=== PATIENT | female | born 1990 | race Two or more races ===

== ENCOUNTER 2022-06-25 11:58 | Emergency (ER) | payer OTHER, SELFPAY ==
[2022-06-25 11:59] VITALS: BP 132/78; PULSE 72; RESP 18; TEMP 36.4; O2SAT 100
[2022-06-25 14:21] LABS: Basophils Absolute Auto 0.1 K/mm3 (0.0-0.1); Basophils Percent Auto 0.7 % (0.2-1.2); Eosinophils Absolute Auto 0.2 K/mm3 (0-0.3); Eosinophils Percent Auto 2.1 % (0-4.4); Hematocrit 39.5 % (37.0-47.0); Hemoglobin 13.4 g/dL (12.0-15.0); Immature Granulocyte Absolute 0.05 K/mm3 (0.00-0.031); Immature Granulocyte Percent A 0.5 % (0-0.5); Lymphocytes Absolute Auto 2.52 K/mm3 (0.9-3.2); Lymphocytes Percent Auto 23.6 % (18.3-44.2); Mean Corpuscular HGB Conc 33.9 g/dl (32-36); Mean Corpuscular Hemoglobin 32.1 pg (26-34); Mean Corpuscular Volume 94.7 fl (80-100); Mean Platelet Volume 8.7 fl (7.4-10.4); Monocytes Absolute Auto 0.6 K/mm3 (0.1-0.6); Monocytes Percent Auto 5.9 % (2.6-8.5); Neutrophils Absolute Auto 7.2 K/mm3 (1.3-6.7); Neutrophils Percent Auto 67.2 % (45.5-73.1); Platelet Count Result 352 k/mm3 (150-375); Red Blood Count 4.17 M/mm3 (4.2-5.4); Red Cell Distribution Width 13.3 % (11.5-14.5); White Blood Count 10.7 K/mm3 (4.5-10.0)
--- NOTE | 2022-06-25 15:54 | ED.FEMALEGU ---
HPI - Female Genitourinary General Chief complaint: Vaginal Bleeding Stated complaint: Vaginal Bleeding Time Seen by Provider: 06/25/22 15:34 Source: patient and RN notes reviewed Mode of arrival: ambulatory Limitations: no limitations History of Present Illness HPI Narrative: This is a 32 year old female with history of irregular menses who presents for evaluation of heavy vaginal bleeding. She reports having menstrual cycle at the end of May, but she did not have period for 3 months prior to that. She started her cycle again 5 days ago and she reports heavy vaginal bleeding for 3 days. She states she was passing large clots. She initially was using tampons but she changed to overnight pads today. She has had to change pads twice today. She thinks her bleeding has decreased since being in ER. She had some intermittent lower abdominal cramping. She denies dizziness. She looked on google and read if you pass large clots you should be evaluated. Review of Systems Constitutional: Constitutional: Denies weakness Cardiovascular: Cardiovascular: Denies syncope, Denies rapid heart rate, Denies irregular heart rhythm, Denies leg edema and Denies dyspnea Respiratory: Respiratory: Denies chest congestion, Denies hemoptysis, Denies excessive phlegm production and Denies dyspnea Gastrointestinal: Gastrointestinal: Denies abdominal pain, Denies hematochezia, Denies diarrhea and Denies vomiting Genitourinary: Genitourinary: Reports abnormal vaginal bleeding, Denies hematuria and Denies dysuria Musculoskeletal: Musculoskeletal: Denies joint swelling, Denies loss of height and Denies muscle weakness Neurologic: Denies syncope, Denies focal weakness and Denies weakness PMFSH Past Medical History Medical History (Updated 06/25/22 @ 16:03 by Vy Ovalles MD) Patient denies medical problems Surgical History Surgical History (Updated 06/25/22 @ 15:58 by Vy Ovalles MD) No pertinent past surgical history Social History Social History (Updated 06/25/22 @ 15:58 by Vy Ovalles MD) Smoking status: Never smoker Exam Const: General: no acute distress and alert Nutritional Appearance: well nourished Orientation/consciousness: patient oriented x3 Limitations: no limitations HENMT: Head: normal to inspection Eyes: EOM: EOMs intact bilaterally Resp: Effort & Inspection: normal respiratory effort Auscultation: clear to auscultation bilaterally Cardio: Rate: regular rate Rhythm: regular rhythm GI: GI Palp: Yes Soft to palpation, No Tenderness to palpation present (GI), No Guarding due to palpation present (GI) and No Rigid due to palpation Auscultation: normal bowel sounds : Speculum Exam - Vagina: vaginal bleeding (no clots, mild dark blood in vault) Speculum Exam - Cervix: Cervical os closed Skin: General skin exam: normal color Rashes: no rashes Wounds: no wounds Neuro: General: patient oriented x3, moves all extremities and CN's II-XI intact bilaterally Extrem: General: normal to inspection Psych: Appearance: grossly normal Mental Status: mental status grossly normal Affect: normal affect Course Reevaluation(s) Reevaluation #1: I Discussed with patient that hemoglobin is normal. Her bleeding is mild. test is negative. I recommended follow up with hydrographer. She reports she is moving to [place] next week. Date: 06/25/22 Time: 15:59 Vital Signs Vital signs: Vital Signs Temperature 97.6 F 06/25/22 11:59 Pulse Rate 72 06/25/22 11:59 Respiratory Rate 18 06/25/22 11:59 Blood Pressure 132/78 06/25/22 11:59 Pulse Oximetry 100 06/25/22 11:59 Oxygen Delivery Room Air 06/25/22 11:59 Temperature 97.6 F 06/25/22 11:59 Pulse Rate 72 06/25/22 11:59 Respiratory Rate 18 06/25/22 11:59 Blood Pressure 132/78 06/25/22 11:59 Pulse Oximetry 100 06/25/22 11:59 Oxygen Delivery Room Air 06/25/22 11:59 MDM - Female Genitourinary Different
[2022-06-25 16:39] VITALS: BP 128/76; PULSE 81; RESP 16; O2SAT 99
== END 2022-06-25 16:40 | disposition home or self-care (01) ==
PROVIDERS: Emergency Provider General Practice
DX: N93.8 Other specified abnormal uterine and vaginal bleeding (principal)
CPT/HCPCS: 36415; 81025; 85025; 99284